=== PATIENT | male | born 1950 | race Caucasian/White ===

== ENCOUNTER 2019-07-27 00:02 | Emergency (ER) | payer MEDICARE, BC ==
--- NOTE | 2019-07-27 00:29 | EDM.PDOC ---
ED HPI GENERAL MEDICAL PROBLEM - General Chief Complaint: Chest Pain Stated Complaint: CHEST PAIN Time Seen by Provider: 07/27/19 00:21 - History of Present Illness INITIAL COMMENTS - FREE TEXT/NARRATIVE: 68-year-old male presents the emergency room with chest pain. This chest pain started around 2:00 this afternoon. It comes and goes he describes it as a sharp pain that is left side of his chest and sometimes can last as long as 10 minutes sometimes it lasts a second or 2 it seems to be sharp comes and goes. The patient has some nitro that was dated back to 2011 at home and this may have slowed it down a little bit. The patient has a significant history of coronary artery disease about 10 years ago he had 2 stents placed. He sees a media technician, Dr. Farias and his campus administrative assistant at [facility] in [place]. The patient took 2 baby aspirin prior to coming in. Treatments [employer]: Reports: Nitroglycerin Left Chest Pain Score (Numeric/FACES): 6 - Related Data Allergies Allergy/AdvReac Type Severity Reaction Status Date / Time amlodipine Allergy Other Verified 07/27/19 00:17 atorvastatin [From Lipitor] Allergy Other Verified 07/27/19 00:17 Home Meds: Home Meds Aspirin [Halfprin] 81 mg PO DAILY 07/27/19 [History] Doxazosin [Cardura] 2 mg PO BEDTIME 07/27/19 [History] Nebivolol [Bystolic] 10 mg PO DAILY 07/27/19 [History] Rosuvastatin [Crestor] 40 mg PO DAILY 07/27/19 [History] Triamterene/Hydrochlorothiazid [Triamterene-HCTZ 37.5-25 MG] 1 cap PO DAILY [History] lisinopriL [Lisinopril] 40 mg PO DAILY 07/27/19 [History] Past Medical History Cardiovascular History: Reports: High Cholesterol, Hypertension Oncologic (Cancer) History: Reports: Renal - Past Surgical History HEENT Surgical History: Reports: Tonsillectomy Cardiovascular Surgical History: Reports: Coronary Artery Stent GI Surgical History: Reports: Appendectomy Male Surgical History: Reports: Other (See Below) Other Male Surgeries/Procedures: renal surgery ED ROS GENERAL - Review of Systems Review Of Systems: See Below Constitutional: Reports: No Symptoms HEENT: Reports: No Symptoms Respiratory: Reports: No Symptoms Cardiovascular: Reports: Chest Pain. Denies: Dyspnea on Exertion, Palpitations Endocrine: Reports: No Symptoms GI/Abdominal: Reports: No Symptoms : Reports: No Symptoms Neurological: Reports: No Symptoms ED EXAM, GENERAL - Physical Exam Exam: See Below Exam Limited By: No Limitations General Appearance: Alert, No Apparent Distress, Other (Sinus rhythm on the monitor) Head: Atraumatic, Normocephalic Neck: Normal Inspection, Supple, Non-Tender, Full Range of Motion. No: Lymphadenopathy (L), Lymphadenopathy (R) Respiratory/Chest: No Respiratory Distress, Lungs Clear, Normal Breath Sounds Cardiovascular: Regular Rate, Rhythm, No Edema, No Murmur GI/Abdominal: Normal Bowel Sounds, Soft, Non-Tender Back Exam: Normal Inspection. No: CVA Tenderness (L), CVA Tenderness (R) Extremities: Normal Inspection, No Pedal Edema Neurological: Alert, Oriented, Normal Cognition EKG INTERPRETATION EKG Date: 07/27/19 Rhythm: NSR [place]: Normal P-Wave: Present QRS: Other (Decreased voltage in the precordial leads and the inferior leads) ST-T: Other (Nondiagnostic nonspecific changes) QT: Normal Comparison: NA - No Prior EKG EKG Interpretation Comments: Nondiagnostic EKG Course - Vital Signs Last Recorded V/S: Last Vital Signs Temp 36.6 C 07/27/19 00:13 Pulse 57 L 07/27/19 00:13 Resp 14 07/27/19 00:13 BP 132/82 07/27/19 00:13 Pulse Ox 92 L 07/27/19 00:13 - Orders/Labs/Meds Orders: Active Orders 24 hr Category Date Time Status EKG Documentation Completion [RC] STAT Care 07/27/19 00:29 Active Chest 1V Frontal [CR] Stat Exams 07/27/19 00:29 Taken Nitroglycerin [Nitrostat] Med 07/27/19 00:31 Active 0.4 mg SL Q5M PRN Medication Orders Nitroglycerin (Nitrostat) 0.4 mg SL Q5M PRN PRN Reason: Chest Pain Labs: Laboratory Tests 07/27/19 07/27/19 07/27/19 Range/Units 00:17 00:17 00:17 WBC 8.31 (4.23-9.07) K/mm3 RBC 4.86 (4.63-6.08) M/mm3 Hgb 14.4 (13.7-17.5) gm/dl Hct 42.1 (40.1-51.0) % MCV 86.6 (79.0-92.2) fl MCH 29.6 (25.7-32.2) pg MCHC 34.2 (32.2-35.5) g/dl RDW Std Deviation 42.2 (35.1-43.9) fL Plt Count 205 (163-337) K/mm3 MPV 9.8 (9.4-12.3) fl Neut % (Auto) 45.8 (34.0-67.9) % Lymph % (Auto) 35.1 (21.8-53.1) % Graves % (Auto) 14.1 H (5.3-12.2) % Eos % (Auto) 4.2 (0.8-7.0) Baso % (Auto) 0.7 (0.1-1.2) % Neut # (Auto) 3.80 (1.78-5.38) K/mm3 Lymph # (Auto) 2.92 (1.32-3.57) K/mm3 Graves # (Auto) 1.17 H (0.30-0.82) K/mm3 Eos # (Auto) 0.35 (0.04-0.54) K/mm3 Baso # (Auto) 0.06 (0.01-0.08) K/mm3 PT 10.4 (9.7-12.0) SECONDS INR 0.95 APTT 27 (22-31) SECONDS Sodium 140 (136-145) mEq/L Potassium 3.8 (3.5-5.1) mEq/L Chloride 104 (98-107) mEq/L Carbon Dioxide 26 (21-32) mEq/L Anion Gap 13.8 (5-15) BUN 19 H (7-18) mg/dL Creatinine 1.3 (0.7-1.3) mg/dL Est Cr Clr Drug Dosing 55.90 mL/min Estimated GFR (MDRD) 55 (>60) mL/min BUN/Creatinine Ratio 14.6 (14-18) Glucose 109 (80-115) mg/dL Calcium 9.1 (8.5-10.1) mg/dL Total Bilirubin 0.3 (0.2-1.0) mg/dL AST 26 (15-37) U/L ALT 62 (16-63) U/L Alkaline Phosphatase 64 (46-116) U/L Troponin I < 0.017 (0.00-0.056) ng/mL Total Protein 7.1 (6.4-8.2) g/dl Albumin 4.0 (3.4-5.0) g/dl Globulin 3.1 gm/dL Albumin/Globulin Ratio 1.3 (1-2) Meds: Medications Generic Name Dose Route Start Last Admin Trade Name Freq PRN Reason Stop Dose Admin Nitroglycerin 0.4 mg 07/27/19 00:31 Nitrostat SL Q5M PRN Chest Pain Discontinued Medications Generic Name Dose Route Start Last Admin Trade Name Freq PRN Reason Stop Dose Admin Aspirin 162 mg 07/27/19 00:30 07/27/19 01:08 Aspirin PO 07/27/19 00:31 162 mg ONETIME ONE Administration - Re-Assessments/Exams Free Text/Narrative Re-Assessment/Exam: 07/27/19 02:51 The patient has been essentially pain-free except for a few brief episodes we did not have the opportunity to give nitro. Because he is taken 2 baby aspirin before coming in we gave him 2 more than he chewed. Patient's heart score is 5 I did discuss this with him and recommended observation and stress testing the patient would like to go home but agrees to follow-up with his media technician tomorrow we had this discussion for quite some time discussing the risks and benefits of this. He still would like to go home. Departure - Departure Time of Disposition: 02:52 Disposition: Home, Self-Care 01 Clinical Impression: Chest pain Referrals: Sera Hugo MD [Primary Care Provider] - Forms: ED Department Discharge Additional Instructions: Return to the emergency room with any questions problems or worsening symptoms. Continue taking your baby aspirin 1 daily. We gave you a fresh bottle of nitro use this as needed 1 pill every 5 minutes as needed until the chest pain is gone, if 3 pills are needed return to the emergency room immediately. Follow-up with your media technician later today. Sepsis Event Note - Evaluation Sepsis Screening Result: No Definite Risk - Focused Exam Vital Signs: Vital Signs Temp Pulse Resp BP Pulse Ox 07/27/19 00:13 36.6 C 57 L 14 132/82 92 L Date Exam was Performed: 07/27/19 Time Exam was Performed: 02:47 - My Orders Last 24 Hours: My Active Orders 07/27/19 00:29 EKG Documentation Completion [RC] STAT Chest 1V Frontal [CR] Stat 07/27/19 00:31 Nitroglycerin [Nitrostat] 0.4 mg SL Q5M PRN - Assessment/Plan Last 24 Hours: My Active Orders 07/27/19 00:29 EKG Documentation Completion [RC] STAT Chest 1V Frontal [CR] Stat 07/27/19 00:31 Nitroglycerin [Nitrostat] 0.4 mg SL Q5M PRN
[2019-07-27] MEDS ORDERED: Aspirin 81 MG Tab.Chew PO ONE (00:30)
[2019-07-27] MEDS ORDERED: Nitroglycerin 0.4 MG Tab.SL SL PRN (00:31)
--- NOTE | 2019-07-27 07:30 | CR ---
Chest: Two views of the chest were obtained. Comparison: No prior chest imaging is available. Heart size and mediastinum are within normal limits. Lungs are clear. Bony structures are grossly intact. Impression: 1. Nothing acute is appreciated on frontal chest x-ray. Diagnostic code #1 This report was dictated in [place] Standard Time
== END 2019-07-27 03:05 | disposition home or self-care (01) ==
LOC: JD.ED 00:02
DX: R07.9 Chest pain, unspecified (principal); I10 Essential (primary) hypertension; E78.00 Pure hypercholesterolemia, unspecified; Z88.8 Allergy status to other drugs, medicaments and biological substances; Z79.82 Long term (current) use of aspirin; Z79.899 Other long term (current) drug therapy
CPT/HCPCS: 36415; 71045; 80053; 84484; 85025; 85610; 85730; 93005; 99285; A9270; 93010; 99284

== ENCOUNTER 2023-04-28 06:30 | Day surgery (SDC) | payer BC, MEDICARE, OTHER ==
[~2023-04-28 06:30] MED LIST: Albuterol 0.083% 2.5 MG/3 ML Neb Soln NEB PRN; Ketamine 200 MG/20 ML MDV ONE; Ketorolac 15 MG/ML SDV ONE; Lactated Ringers 1,000 ML IV SCH; Lactated Ringers 1,000 ML ONE; Midazolam 1 MG/ML 2 ML SDV ONE; Morphine 8 MG, EPINEPHrine 0.3 MG, Cefuroxime 750 MG, Ketorolac 30 MG, Sodium Chloride ... PRN; Ondansetron 4 MG/2 ML SDV ONE; Phenylephrine 1% 10 MG/ML SDV ONE; Propofol 200 MG/20 ML SDV ONE; Sodium Chloride 0.9% 10 ML Syringe FLUSH PRN; Sodium Chloride 0.9% 10 ML Syringe FLUSH SCH; Tranexamic Acid 1,000 MG/10 ML Vial ONE; Vancomycin 1 GM SDV ONE; ceFAZolin 2 GM Vial ONE; fentaNYL 100 MCG/2 ML SDV ONE
[2023-04-28 06:57] LABS: INR 0.98; PROTHROMBIN TIME 10.5 SECONDS (9.7-12.0)
[2023-04-28 06:58] LABS: PTT,PARTIAL THROMBOPLSTIN TIME 29.6 SECONDS (21.7-31.4)
[2023-04-28] MEDS ORDERED: HYDROmorphone 0.5 MG/0.5 ML Syringe IVPUSH PRN (07:49)
[2023-04-28] MEDS ORDERED: ePHEDrine 50 MG/ML SDV IVPUSH PRN (07:49)
[2023-04-28] MEDS ORDERED: fentaNYL 100 MCG/2 ML SDV IVPUSH PRN (07:49)
[2023-04-28] MEDS ORDERED: Albuterol 0.083% 2.5 MG/3 ML Neb Soln NEB PRN (07:49)
[2023-04-28] MEDS ORDERED: Phenylephrine 1% 10 MG/ML SDV IV PRN (07:49)
[2023-04-28] MEDS ORDERED: diphenhydrAMINE 50 MG/ML SDV IVPUSH PRN (07:49)
[2023-04-28] MEDS ORDERED: Ondansetron 4 MG/2 ML SDV IVPUSH PRN (07:49)
[2023-04-28] MEDS ORDERED: Midazolam 1 MG/ML 2 ML SDV ONE (07:56)
[2023-04-28] MEDS ORDERED: Propofol 200 MG/20 ML SDV ONE (08:20)
[2023-04-28] MEDS ORDERED: ePHEDrine 50 MG/ML SDV ONE (08:31)
[2023-04-28] MEDS ORDERED: Acetaminophen/HYDROcodone 325-5 MG Tab PO PRN (09:19)
[2023-04-28] MEDS ORDERED: Lactated Ringers 1,000 ML ONE (11:55)
== END 2023-04-28 12:30 | disposition home or self-care (01) ==
LOC: JD.SDS 06:30
PROVIDERS: ATTEND Orthopaedic Surgery
DX: M16.11 Unilateral primary osteoarthritis, right hip (principal); I10 Essential (primary) hypertension; I25.10 Atherosclerotic heart disease of native coronary artery without angina pectoris; E78.2 Mixed hyperlipidemia; E66.9 Obesity, unspecified; Z68.33 Body mass index [BMI] 33.0-33.9, adult; F17.210 Nicotine dependence, cigarettes, uncomplicated; Z95.1 Presence of aortocoronary bypass graft; Z79.82 Long term (current) use of aspirin; Z79.899 Other long term (current) drug therapy; Z88.8 Allergy status to other drugs, medicaments and biological substances
CPT/HCPCS: 0055T; 27130; 36415; 73501; 85610; 85730; 86850; 86900; 86901; 97116; 97161; A9270; C1713; C1776; J0171; J0690; J0697; J1885; J2250; J2270; J2371; J2405; J2704; J3010; J3370; J7030; J7120; 01214; J3490; J7620-GY

== ENCOUNTER 2023-06-13 10:40 | Day surgery (SDC) | payer MEDICARE ==
[~2023-06-13 10:40] MED LIST changes: -Albuterol 0.083% 2.5 MG/3 ML Neb Soln NEB PRN; +Cefuroxime 10 MG/ML SYRINGE EYERT SCH; -Ketamine 200 MG/20 ML MDV ONE; -Ketorolac 15 MG/ML SDV ONE; -Lactated Ringers 1,000 ML IV SCH; -Lactated Ringers 1,000 ML ONE; +Lidocaine 1% PF 2 ML SDV INJECT SCH; -Midazolam 1 MG/ML 2 ML SDV ONE; -Morphine 8 MG, EPINEPHrine 0.3 MG, Cefuroxime 750 MG, Ketorolac 30 MG, Sodium Chloride ... PRN; -Ondansetron 4 MG/2 ML SDV ONE; -Phenylephrine 1% 10 MG/ML SDV ONE; +Pilocarpine 4% Ophth Soln 15 ML Bot EYERT SCH; -Propofol 200 MG/20 ML SDV ONE; -Sodium Chloride 0.9% 10 ML Syringe FLUSH PRN; -Sodium Chloride 0.9% 10 ML Syringe FLUSH SCH; -Tranexamic Acid 1,000 MG/10 ML Vial ONE; -Vancomycin 1 GM SDV ONE; -ceFAZolin 2 GM Vial ONE; -fentaNYL 100 MCG/2 ML SDV ONE
[2023-06-13] MEDS: Polymyxin B/Trimethoprim 10 ML Bottle EYERT SCH ×3 (11:41→13:54)
[2023-06-13] MEDS: Brimonidine 0.2% Ophth Soln 5 ML Bottle EYERT SCH ×3 (11:45→13:53)
[2023-06-13] MEDS: Phenylephrine 2.5% Ophth Soln 2 ML Bot EYERT SCH ×5 (11:49→13:32)
[2023-06-13] MEDS: Tropicamide 1% Ophth Soln 3 ML Bottle EYERT SCH ×4 (11:52→12:20)
[2023-06-13] MEDS: Proparacaine 0.5% Ophth Soln 15 ML Bottle EYEBOTH SCH ×4 (13:07→13:38)
== END 2023-06-13 14:03 | disposition home or self-care (01) ==
LOC: JD.SDS 10:40
PROVIDERS: ATTEND Ophthalmology
DX: H25.811 Combined forms of age-related cataract, right eye (principal); H35.033 Hypertensive retinopathy, bilateral; H16.103 Unspecified superficial keratitis, bilateral; H10.22 Pseudomembranous conjunctivitis; H02.831 Dermatochalasis of right upper eyelid; H02.834 Dermatochalasis of left upper eyelid; I10 Essential (primary) hypertension; E78.00 Pure hypercholesterolemia, unspecified; F17.210 Nicotine dependence, cigarettes, uncomplicated; Z79.899 Other long term (current) drug therapy; Z88.8 Allergy status to other drugs, medicaments and biological substances
CPT/HCPCS: A9270-GY; J0697; J3490; V2788

== ENCOUNTER → 2023-07-21 | Day surgery (SDC) | payer MEDICARE ==
[~2023-07-21] MED LIST changes: +Cefuroxime 10 MG/ML SYRINGE EYELF SCH; -Cefuroxime 10 MG/ML SYRINGE EYERT SCH; -Pilocarpine 4% Ophth Soln 15 ML Bot EYERT SCH
[2023-07-21] MEDS: Pilocarpine 4% Ophth Soln 15 ML Bot EYELF SCH ×2 (09:06→10:41)
[2023-07-21] MEDS: Brimonidine 0.2% Ophth Soln 5 ML Bottle EYELF SCH ×3 (09:11→10:41)
[2023-07-21] MEDS: Phenylephrine 2.5% Ophth Soln 2 ML Bot EYELF SCH ×5 (09:16→10:20)
[2023-07-21] MEDS: Tropicamide 1% Ophth Soln 3 ML Bottle EYELF SCH ×5 (09:20→10:11)
[2023-07-21] MEDS: Polymyxin B/Trimethoprim 10 ML Bottle EYELF SCH ×2 (09:46→10:41)
[2023-07-21] MEDS: Tetracaine HCl/PF 0.5% 4 ML Bottle EYEBOTH SCH ×4 (10:09→10:28)
== END ==
LOC: JD.SDS 08:26
PROVIDERS: ATTEND Ophthalmology
DX: H25.812 Combined forms of age-related cataract, left eye (principal); I10 Essential (primary) hypertension; E78.2 Mixed hyperlipidemia; Z96.1 Presence of intraocular lens; Z79.899 Other long term (current) drug therapy; Z88.8 Allergy status to other drugs, medicaments and biological substances
CPT/HCPCS: A9270-GY; J0697; J3490